=== PATIENT | male | born 1960 | race Caucasian/White ===

== ENCOUNTER → 2023-10-23 10:27 | Outpatient (REF) | payer OTHER, SELFPAY | LOC: HWRAD 10:27 | PROVIDERS: ATTENDING PHYSICIAN Physician Assistant | DX: Z87.891 Personal history of nicotine dependence (principal) | CPT/HCPCS: 71271 ==

== ENCOUNTER → 2023-11-15 10:54 | Outpatient (REF) | payer OTHER, SELFPAY | LOC: PAVMRI 10:54 | PROVIDERS: ATTENDING PHYSICIAN Psychiatry & Neurology Neurology; FAMILY PHYSICIAN Physician Assistant | DX: Z87.898 Personal history of other specified conditions (principal); R20.2 Paresthesia of skin; Z92.89 Personal history of other medical treatment | CPT/HCPCS: 70260; 70553; A9575 ==